=== PATIENT | female | born 1945 | race Caucasian/White ===

== ENCOUNTER 2020-10-02 08:35 | Outpatient (CLI) | payer OTHER | END 2020-10-02 08:41 | disposition HB | LOC: SONOGRAMA 08:35 | PROVIDERS: ATTEND Family Medicine | DX: R10.84 Generalized abdominal pain (principal) ==

== ENCOUNTER 2020-10-29 10:27 | Outpatient (CLI) | payer OTHER | END 2020-10-29 10:30 | disposition HB | LOC: SONOGRAMA 10:27 | PROVIDERS: ATTEND Family Medicine | DX: R10.30 Lower abdominal pain, unspecified (principal) ==

== ENCOUNTER → 2021-06-05 | Outpatient (CLI) | payer OTHER | END | disposition home or self-care (01) | LOC: PPH VACUNA 15:00 | DX: Z23 Encounter for immunization (principal) ==